=== PATIENT | female | born 1990 | race Caucasian/White ===

== ENCOUNTER 2016-06-21 21:20 | Emergency (ER) | payer OTHER ==
[~2016-06-21] VITALS: Ht 172.7 cm; Wt 78.9 kg
--- NOTE | 2016-06-21 22:23 | ED GENERAL ADULT ---
History of Present Illness General Chief Complaint: Wheezing/Asthma Stated Complaint: DIFF BREATHING, Hx ASTHMA Source: patient Exam Limitations: no limitations Vital Signs & Intake/Output Vital Signs & Intake/Output Vital Signs Date Time Temp Pulse Resp B/P Pulse O2 O2 Flow FiO2 Ox Delivery Rate 06/21 2259 97.2 93 20 125/69 98 Room Air 06/21 2240 98 06/21 2126 97.9 88 18 124/84 98 Room Air ED Intake and Output 06/22 0000 06/21 1200 Intake Total 30 Output Total Balance 30 Intake, Oral 30 Patient 174 lb Weight Allergies Coded Allergies: No Known Allergies (06/21/16) Reconcile Medications Fluticasone Propionate (Flovent Hfa) 110 MCG/ACTUATION AER.W.ADAP 2 PUF INH BID ASTHMA Prednisone 10 MG TABLET 0 PO DAILY ASTHMA START WITH 5 TABS PO ON DAY 1, DECREASE BY 10MG DAILY FOR 5 DAYS Triage Note: PT TO TRIAGE WITH C/O SOB, CONGESTION, FEVER, DRY COUGH SINCE THIS MORNIG. PT AFEBRILE IN TRIAGE. O2SAT 98% ON RA, NO RESP DISTRESS NOTED. HX OF ASTHMA. PT HAS BEEN USING ALBUTEROL INH WITH SLIGHT RELIEF. Triage Nurses Notes Reviewed? yes : No Patient currently breastfeeds: No HPI: Patient is a 26-year-old female presents complaining of cough, congestion, wheezing. Symptoms onset this morning. Patient has been using her albuterol inhaler with mild improvement. Patient reports symptoms have been moderate to severe. Subjective fevers this morning. Patient with history of asthma, reports that she has not had an exacerbation like this in several years. Patient denies chest pain, sick contacts. (CEASAR SANCHES) Past History Travel History Traveled to [place] past 21 day No Medical History Any Pertinent Medical History? see below for history Respiratory: asthma Surgical History Surgical History: non-contributory Psychosocial History What is your primary language [place] Tobacco Use: Never used Family History Hx Contributory? No (CEASAR SANCHES) Review of Systems Review of Systems Constitutional: Denies: chills, fever. EENTM: Reports: no symptoms. Respiratory: Reports: see HPI. Cardiovascular: Denies: chest pain. GI: Denies: abdominal pain. Musculoskeletal: Reports: no symptoms. Skin: Reports: no symptoms. Neurological/Psychological: Reports: no symptoms. Hematologic/Endocrine: Reports: no symptoms. Immunologic/Allergic: Reports: no symptoms. (CEASAR SANCHES) Physical Exam Physical Exam General Appearance: well developed/nourished, alert, awake Head: atraumatic, normal appearance Eyes: Bilateral: normal appearance, PERRL, EOMI. Ears, Nose, Throat: normal pharynx, normal ENT inspection, hearing grossly normal Neck: normal inspection, supple, full range of motion Respiratory: no respiratory distress, mild diffuse expiratory wheezing. Cardiovascular: regular rate/rhythm Back: normal inspection, normal range of motion Extremities: normal inspection, normal capillary refill, normal range of motion, no edema Neurologic/Psych: no motor/sensory deficits, awake, alert, oriented x 3, normal gait, normal mood/affect Skin: intact, normal color, warm/dry Lymphatic: no anterior cervical rick Core Measures ACS in differential dx? No CVA/TIA Diagnosis: No Severe Sepsis Present: No Septic Shock Present: No (CEASAR SANCHES) Progress Differential Diagnoses I considered the following diagnoses in my evaluation of the patient: Asthma, bronchitis, pneumonia Plan of Care: Current Medications Sig/Nohelia Start time Last Medication Dose Stop Time Status Admin Prednisone 60 MG ONCE ONE 06/21 2229 UNVr 06/21 223006/21/2016 10:50:00 PM: Patient reevaluated after breathing treatment. Lungs clear throughout. Patient feeling improved. Appears stable for discharge, imaging deferred secondary to exam. (CEASAR SANCHES) Initial ED EKG: none (CEASAR SANCHES) Departure Departure Disposition: HOME OR SELF CARE Condition: Stable Clinical Impression Primary Impression: Asthma exacerbation Referrals: JULIANNE MOY,AG Hernandez (PCP/Family) Additional Instructions: Follow up with your primary care doctor for further evaluation, call tomorrow for appointment. Use your albuterol inhaler as directed. Take the course of prednisone as directed. Return to the emergency department breathing worsening, unable say hydrated, or worsening of symptoms. Departure Forms: Customer Survey General Discharge Information Prescriptions: Current Visit Scripts Prednisone 0 PO DAILY #15 TAB START WITH 5 TABS PO ON DAY 1, DECREASE BY 10MG DAILY FOR 5 DAYS Fluticasone Propionate (Flovent Hfa) 2 PUF INH BID #1 INHAL (CEASAR SANCHES) PA/SCREENER OPERATOR Co-Sign Statement Statement: ED Attending supervision documentation- [] I saw and evaluated the patient. I have also reviewed all the pertinent lab results and diagnostic results. I agree with the findings and the plan of care as documented in the PA's/SCREENER OPERATOR's documentation. [x] I have reviewed the ED Record and agree with the PA's/SCREENER OPERATOR's documentation. [] Additions or exceptions (if any) to the PAs/SCREENER OPERATOR's note and plan are summarized below: [] (RUSLAN SWEET,RAYMUNDO Huitron) Critical Care Note Critical Care Note Critical Care Time: non-applicable (DENISE PETERSEN,CEASAR)
[2016-06-21] MEDS ORDERED: PREDNISONE10 M2 PO (22:46)
[2016-06-21] MEDS ORDERED: FLOVENT HFA12 G1 INH (22:46)
[2016-06-21 22:59] VITALS: BP 125/69
== END 2016-06-21 23:06 ==
LOC: ERH 21:20
DX: J45.901 Unspecified asthma with (acute) exacerbation (principal)
CPT/HCPCS: 1263